=== PATIENT | male | born 1980 | race Caucasian/White ===

== ENCOUNTER 2020-11-25 20:51 | Emergency (ER) | payer OTHER, SELFPAY ==
[2020-11-25 21:02] VITALS: BP 154/99; PULSE 110; RESP 16; TEMP 37.2; O2SAT 94; BMI 48.7
--- NOTE | 2020-11-25 22:26 | ED_ITS ---
HPI - Extremity Problem General Chief complaint: Extremity Problem Stated complaint: LEG BLEED Time Seen by Provider: 11/25/20 22:20 Source: patient Mode of arrival: ambulatory Limitations: no limitations History of Present Illness HPI Narrative: 39-year-old male presents with left lower extremity bleeding. Stated that he was in the shower, scratch to scab and noted significant bleeding with spurting. Was unable to control the bleeding and presented to the emergency department. MD Complaint: extremity pain Onset (ago): hour(s) (Within the hour of arrival) Pain Consistency: constant Location: left and lower extremity Radiation: none Exacerbating factors: weight bearing and walking Associated symptoms: denies other symptoms Related Data Allergies Allergy/AdvReac Type Severity Reaction Status Date / Time No Known Allergies Allergy Verified 11/25/20 21:16 Review of Systems Review of Systems: Constitutional: No Fever, No Chills ENT/Mouth: No Ear Pain, No Hoarseness, No sore throat Eyes: No Eye Pain, No Swelling, No Redness, No Foreign Body Cardiovascular: No Chest Pain, No SOB Respiratory: No Cough, No Dyspnea Gastrointestinal: No Nausea, No Vomiting, No Diarrhea, No abdominal Pain Genitourinary: No Dysuria, No Hematuria Musculoskeletal: No joint pain, No Myalgias, No Joint Swelling Skin: Positive varicose vein bleeding, No Skin lacerations, No rash Neuro: No Weakness, No Numbness, No Paresthesias, No Loss of Consciousness, No Dizziness, No Headache Psych: No Anxiety/Panic, No Depression Heme/Lymph: no easy bruising, no Lymphadenopathy Endocrine: No Polyuria, No Polydipsia Yes all other systems are reviewed and are negative [facility] Past Medical History Attestation statement: The following information was validated with the patient. Source: old records reviewed Medical History (Updated 11/25/20 @ 23:17 by Lisa Ellis NP) Hypertension Social History Social History Advance Directives: No Physical Exam Vital Signs: Vital Signs: Last Vital Signs Temp 98.9 F 11/25/20 21:02 Pulse 110 H 11/25/20 21:02 Resp 16 11/25/20 21:02 BP 154/99 H 11/25/20 21:02 Pulse Ox 94 11/25/20 21:02 Body Mass Index 48.7 Appearance: Alert. Oriented X3. No acute distress. Eyes: Pupils equal, round and reactive to light. ENT: Pharynx normal. Neck: Normal inspection. Neck supple. CVS: Normal heart rate and rhythm. Pulses normal. Respiratory: No respiratory distress. Breath sounds normal. Abdomen: Soft and nontender. Skin: Scab noted to left lateral malleolar with bleeding varicose vein. Normal skin color. Normal skin turgor. Extremities: +3 pitting edema to bilateral lower extremities. Brisk capillary refill. Equal pedal pulses. Neuro: No motor deficit. No sensory deficit. Cranial nerves 2-12 intact. Course Course Course Narrative: 39-year-old male presents with bleeding varicose vein to the left lower extremity. Patient has not seen a physician in over 25 years, does not have a primary care established. I did give him information and phone number to call for PCP. He does have pitting edema, high blood pressure and morbid obesity. At this time we will only address is varicose vein. Prepped and draped in sterile fashion. Cleansed with Betadine. Patient t olerated procedure well. Patient continues with brisk capillary refill in the foot pulses approximately 30 minute status post varicose vein ligation. Three sutures applied. Patient was observed for approximately 45 minutes. Hemostasis successful with sutures and elevation. Dressing applied. Patient verbalized understanding of and agrees to plan of care discharge home. MDM - Extremity (Nontraumatic) MDM Narrative Medical decision making narrative: Bleeding varicose vein Medical Records Attestation: I reviewed the patient's medical records. Procedures Laceration Laceration 1: Site: lower extremity Side (If applicable): left Local Anesthetic: lidocaine 2% and with epi Amount of anesthesia used (mL): 6 Pre-repair: wound explored Skin layer closed with: nylon Size (cm): 4-0 Number of sutures: 3 Technique: simple, interrupted Discharge Plan Discharge Clinical Impression: Bleeding from varicose veins of left lower extremity Patient Disposition: Home, Self-Care Instructions: Care For Your Stitches (ED), Acute Wounds (ED) Additional Instructions: You were evaluated for a left lower bleeding varicose vein. We applied 3 sutures. You must for return in 7-10 days to have the sutures removed. You have significant bilateral lower extremity edema and high blood pressure. You must follow-up with primary care physician. Please call the number on the paper that I gave you to find primary care physician. Thank you for choosing this emergency department for evaluation. Please follow-up with primary care physician as needed. Return to the emergency department for any new, concerning, or worsening symptoms. Stand Alone Forms: Work/School Release
[2020-11-25] MEDS: Lidocaine HCl 2%/Epi 1:100,000 20 ML VIAL INFILTRATI (23:40)
== END 2020-11-25 23:37 | disposition home or self-care (01) ==
PROVIDERS: Emergency Provider Emergency Medicine
DX: I83.892 Varicose veins of left lower extremity with other complications (principal); R60.0 Localized edema; I10 Essential (primary) hypertension
CPT/HCPCS: 12002; 99282; 99284

== ENCOUNTER 2020-12-04 08:49 | Emergency (ER) | payer OTHER, SELFPAY ==
[2020-12-04 08:56] VITALS: BP 162/100; PULSE 100; RESP 18; TEMP 36.7; O2SAT 94; BMI 50.0
--- NOTE | 2020-12-04 09:07 | ED_ITS ---
HPI - Wound/Laceration General Chief Complaint: Wound/Laceration Stated Complaint: SUTURE REMOVAL Time Seen by Provider: 12/04/20 09:02 Source: patient Mode of arrival: ambulatory Limitations: no limitations History of Present Illness HPI narrative: 39 y/o male presenting for suture removal. He was seen her harley 11/25 for a bleeding varicose vein of his left ankle that required 3 sutures to stop the bleeding. He reports some tiny amounts of dried blood on his band aids he has been using to cover it but no overt bleeding. No other issues. Onset (ago): day(s) Extremity Location: left: ankle (lateral ankle) Place: home Context: accidental Associated symptoms: none Treatments prior to arrival: bandage Related Data Allergies Allergy/AdvReac Type Severity Reaction Status Date / Time No Known Allergies Allergy Verified 12/04/20 08:58 Review of Systems Constitutional: Constitutional: Denies chills and Denies fever(s) Eyes: Eyes: Reports no additional eye complaints ENT: Reports system reviewed and no additional complaints, except as documented Cardiovascular: Cardiovascular: Denies chest pain and Denies dyspnea Respiratory: Respiratory: Denies dyspnea Musculoskeletal: Musculoskeletal: Denies arthralgias, Denies joint swelling and Denies numbness Integumentary/Breasts: Skin/Breast: Denies swelling, Denies pruritus, Reports erythema, Denies skin pain, Denies skin swelling and Reports wounds Neurologic: Denies numbness Hematologic/Lymphatic: Hematologic/Lymphatic: Reports easy bleeding and Denies easy bruising PMFSH Past Medical History Medical History (Updated 12/04/20 @ 09:09 by ROD Francis) Hypertension Social History Social History Advance Directives: No Advance Directives Information Provided: No Physical Exam Vital Signs: Vital Signs: Last Vital Signs Temp 98.1 F 12/04/20 08:56 Pulse 100 12/04/20 08:56 Resp 18 12/04/20 08:56 BP 162/100 H 12/04/20 08:56 Pulse Ox 94 12/04/20 08:56 Body Mass Index 50.0 Appearance: Alert. Oriented X3. No acute distress. HEENT: normal inspection CVS: Normal heart rate and rhythm. Pulses normal. Respiratory: No respiratory distress. Skin: Skin warm and dry. Normal skin color. Normal skin turgor. No rashes. Extremities: left lateral ankle with small wound with [address], mild surrounding erythema, no warmth. no bleeding no drainage of pus Neuro: Oriented X 3. No motor deficit. No sensory deficit. Course Course Course Narrative: 39 y/o male presenting for suture removal from bleeding varic ose vein. 3 sutures removed. Wound is not bleeding, healing appropriately. Mild erythema, likely from increased moisture. Advised to leave open to air and start bacitracin. Stable for d/c home. He has an appointment with a new PCP tomorrow - he has not seen a doctor since he was a child. Discharge Plan Discharge Clinical Impression: Visit for suture removal Patient Disposition: Home, Self-Care Instructions: Stitches Removal (ED) Additional Instructions: Keep wound open to air today. Start using bacitracin two times per day tomorrow. Follow up with your doctor Friday as scheduled. Stand Alone Forms: Work/School Release
== END 2020-12-04 09:16 | disposition home or self-care (01) ==
PROVIDERS: Emergency Provider Emergency Medicine
DX: Z48.02 Encounter for removal of sutures (principal)
CPT/HCPCS: 99283

== ENCOUNTER 2020-12-06 12:10 | Outpatient (REF) | payer OTHER, SELFPAY | END 2020-12-06 12:11 | disposition home or self-care (01) | LOC: HO.LNP 12:10 | PROVIDERS: Visit Provider Nurse Practitioner Family | DX: Z20.822 Contact with and (suspected) exposure to COVID-19 (principal); R06.2 Wheezing | CPT/HCPCS: U0003; U0005 ==

== ENCOUNTER 2020-12-12 08:06 | Outpatient (REF) | payer OTHER, SELFPAY ==
--- NOTE | ~2020-12-12 | XR_ITS ---
EXAMINATION: XR CHEST CLINICAL INFORMATION: Wheezing COMPARISON: None TECHNIQUE: 2 views of the chest were obtained. FINDINGS: No significant abnormality is noted involving the heart, lungs, mediastinum, bony thorax or soft tissues. XR/XR chest 2V IMPRESSION: Unremarkable chest examination.
[2020-12-12 12:16] LABS: Appearance Urine CLOUDY; Color Urine YELLOW; Glucose Urine UA NEG (NEG); Leukocyte Esterase Urine NEG (NEG); Nitrite Urine NEG (NEG); Urine Blood NEG (NEG); Urine Ketones NEG (NEG); Urine Protein NEG (NEG-TRACE)
[2020-12-12 12:25] LABS: TSH reflex Free T4 3.08 uIU/mL (0.32-4.0)
[2020-12-12 12:32] LABS: Alanine Aminotransferase 61 U/L (0-40); Albumin Level 4.3 g/dL (3.5-5.0); Alkaline Phosphatase 69 U/L (39-117); Anion Gap 9 (12-20); Aspartate Amino Transferase 32 U/L (5-37); Bilirubin Total 0.7 mg/dL (0.0-1.0); Blood Urea Nitrogen 13 mg/dL (9-16); Carbon Dioxide 29 mmol/L (22-29); Chloride 105 mmol/L (96-108); Cholesterol 202 mg/dL; Estimated Glomerular Filt Rate > 60; Glucose Fasting 99 mg/dL (60-99); HDL Cholesterol 36 mg/dL; LDL Cholesterol Calculated 147 mg/dl; Potassium 4.3 mmol/L (3.3-5.1); Sodium 139 mmol/L (135-145); Total Protein 7.4 g/dL (6.5-8.0); Triglycerides 96 mg/dL
== END 2020-12-12 08:07 | disposition home or self-care (01) ==
LOC: HO.HMGCLDS 08:06
PROVIDERS: PCP Nurse Practitioner Family; Visit Provider Nurse Practitioner Family
DX: Z00.00 Encounter for general adult medical examination without abnormal findings (principal); R06.2 Wheezing
CPT/HCPCS: 36415; 71046; 80053; 80061; 81003; 84443

== ENCOUNTER → 2021-02-01 10:19 | Outpatient (BNVA) | payer OTHER, SELFPAY | PROVIDERS: PCP Nurse Practitioner Family; Visit Provider Surgery Vascular Surgery ==

== ENCOUNTER 2021-02-19 07:44 | Outpatient (REF) | payer OTHER, SELFPAY ==
--- NOTE | ~2021-02-19 | US_ITS ---
EXAMINATION: RIGHT and LEFT LOWER EXTREMITY VENOUS ULTRASOUND (Reflux Exam) CLINICAL INDICATION: leg pain and varicose veins. COMPARISON: None. TECHNIQUE: Color flow triplex imaging and compression Doppler was performed to evaluate both the deep and the superficial systems bilaterally. To evaluate the superficial system, the examination was performed in the upright position. Color-flow Doppler ultrasound and compression ultrasound were utilized. In addition, maneuvers were utilized to demonstrate reflux. FINDINGS: 1. DEEP VENOUS ULTRASOUND OF THE RIGHT LOWER EXTREMITY: Respiratory variation, normal compression and augmented flow are noted in the right common femoral vein as well as the right popliteal vein and there is no evidence of deep venous thrombosis at these locations. There is no evidence of reflux in the deep system in either the common femoral vein or the popliteal vein. There is no evidence of a Winchester's cyst. 2. SUPERFICIAL ULTRASOUND WITH DOPPLER OF RIGHT LOWER EXTREMITY: The right great saphenous vein at the saphenofemoral junction measures 7 mm, at the mid thigh 6 mm. The remainder of the right greater saphenous vein is not visualized. No right greater saphenous vein reflux is seen. There is a lateral accessory greater saphenous vein that measures 5 mm and demonstrates 1 to 1.2 seconds reflux. The right small saphenous vein measures 4-5 mm. There is 1.2 seconds reflux in the small saphenous vein in the distal calf. There are perforators at the knee and calf that measure 2 and 4 mm and do not demonstrate reflux. There are varicosities in the thigh and calf that measure 4 to 5 mm. Demonstrate reflux, maximum 3.2 seconds. 3. DEEP VENOUS ULTRASOUND OF THE LEFT LOWER EXTREMITY: Respiratory variation, normal compression and augmented flow are noted in the left common femoral vein as well as the left popliteal vein and there is no evidence of deep venous thrombosis at these locations. There is no evidence of reflux in the deep system in either the common femoral vein or the popliteal vein. . There is no evidence of a Winchester's cyst. 4. SUPERFICIAL ULTRASOUND WITH DOPPLER OF LEFT LOWER EXTREMITY: Left great saphenous vein at the saphenofemoral junction measures 8 mm, at the mid thigh 5 mm, [id number] 5 mm, [id number] 4 mm, at mid calf 3 mm and at the ankle measures 4 mm. There is diffuse left greater saphenous vein reflux measuring maximum 3.3 seconds above the knee. There is a accessory lateral greater saphenous vein measures 3 to 6 mm and demonstrates reflux, maximum 3 seconds. The left small saphenous vein measures 4-8 mm. There is diffuse left small saphenous vein reflux measuring maximum 3.2 seconds in the mid calf. There is a deckhand in the mid calf that measures 4 mm and does not demonstrate reflux. There are varicosities in the thigh and at the knee that measure 3 to 6 mm and demonstrate reflux, maximum 3.5 seconds. US/US venous duplex LE BI IMPRESSION: Right: No DVT or deep venous reflux. The right greater saphenous vein from the mid thigh to the ankle is not visualized. The right greater saphenous vein in the proximal thighs normal in caliber and no reflux is seen. Reflux in an accessory lateral greater saphenous vein and dilated right small saphenous vein with reflux. Reflux in varicosities in the right thigh and calf. Left: No DVT or deep venous reflux. Diffuse left greater saphenous vein reflux measuring maximum 3.3 seconds. Reflux in an accessory left greater saphenous vein is very maximum 3 seconds. Dilated left small saphenous vein with reflux measuring maximum 3.2 seconds. Reflux in varicosities in the thigh and at the knee measuring maximum 3.5 seconds.
== END 2021-02-19 07:45 | disposition home or self-care (01) ==
LOC: HO.US 07:44
PROVIDERS: PCP Nurse Practitioner Family; Visit Provider Surgery Vascular Surgery
DX: I83.12 Varicose veins of left lower extremity with inflammation (principal)
CPT/HCPCS: 93970

== ENCOUNTER → 2021-02-22 11:24 | Outpatient (BNVA) | payer OTHER, SELFPAY | PROVIDERS: PCP Nurse Practitioner Family; Visit Provider Surgery Vascular Surgery ==

== ENCOUNTER → 2021-04-20 08:32 | Outpatient (BNVA) | payer OTHER, SELFPAY | PROVIDERS: PCP Nurse Practitioner Family; Visit Provider Surgery Vascular Surgery | DX: I83.12 Varicose veins of left lower extremity with inflammation (principal) | CPT/HCPCS: 36482 ==

== ENCOUNTER 2021-04-23 15:18 | Outpatient (REF) | payer OTHER, SELFPAY ==
--- NOTE | ~2021-04-23 | US_ITS ---
EXAMINATION: US VENOUS ULTRASOUND WITH DOPPLER LOWER EXTREMITY, LEFT CLINICAL INFORMATION: Pain. Post VenaSeal procedure 04/20/2021. COMPARISON: Previous exam February 2021 TECHNIQUE: Ultrasound of the deep veins is performed from the hip to the calf with compression sonography and color and pulse Doppler assessment. Spectral analysis with color-flow imaging is performed. FINDINGS: There is normal venous compression and respiratory variation and augmented flow. The visualized common femoral vein, superficial femoral vein, profunda femoral vein, popliteal vein, and the trifurcation region shows no evidence of deep venous thrombosis. There is echogenic material seen in the greater saphenous vein in the mid thigh post VenaSeal procedure. The greater saphenous vein inferior to this point appears closed. There is no significant popliteal fossa cyst. US/US venous duplex LE LT IMPRESSION: No DVT demonstrated in the left lower extremity.
== END 2021-04-23 15:19 | disposition home or self-care (01) ==
LOC: HO.US 15:18
PROVIDERS: Visit Provider Surgery Vascular Surgery
DX: M79.605 Pain in left leg (principal)
CPT/HCPCS: 93971

== ENCOUNTER → 2021-05-01 09:06 | Outpatient (BNVA) | payer OTHER, SELFPAY | PROVIDERS: PCP Nurse Practitioner Family; Visit Provider Surgery Vascular Surgery ==

== ENCOUNTER → 2021-06-01 07:29 | Outpatient (BNVA) | payer OTHER, SELFPAY | PROVIDERS: PCP Nurse Practitioner Family; Visit Provider Surgery Vascular Surgery | DX: I83.12 Varicose veins of left lower extremity with inflammation (principal) | CPT/HCPCS: 36475 ==

== ENCOUNTER 2021-06-04 09:47 | Outpatient (REF) | payer OTHER, SELFPAY ==
--- NOTE | ~2021-06-04 | US_ITS ---
EXAMINATION: US VENOUS ULTRASOUND WITH DOPPLER LOWER EXTREMITY, LEFT CLINICAL INFORMATION: This is a 40-year-old male whose had pain in the left leg status post radiofrequency ablation of the small saphenous vein on June 01, 2021. The patient is 3 days post procedure. COMPARISON: None TECHNIQUE: Ultrasound of the deep veins is performed from the hip to the calf with compression sonography and color and pulse Doppler assessment. Spectral analysis with color-flow imaging is performed. FINDINGS: There is no deep vein thrombosis present. The small saphenous vein is closed beginning 3.5 cm from the sapheno popliteal junction. There is no extension of thrombus into the deep venous system. US/US venous duplex LE LT IMPRESSION: No DVT demonstrated in the left lower extremity.
== END 2021-06-04 09:48 | disposition home or self-care (01) ==
LOC: HO.US 09:47
PROVIDERS: PCP Nurse Practitioner Family; Visit Provider Surgery Vascular Surgery
DX: M79.605 Pain in left leg (principal)
CPT/HCPCS: 93971

== ENCOUNTER → 2021-06-12 08:56 | Outpatient (BNVA) | payer OTHER, SELFPAY | PROVIDERS: PCP Nurse Practitioner Family; Visit Provider Surgery Vascular Surgery ==

== ENCOUNTER → 2021-07-06 08:26 | Outpatient (BNVA) | payer OTHER, SELFPAY | PROVIDERS: PCP Nurse Practitioner Family; Visit Provider Surgery Vascular Surgery | DX: I83.11 Varicose veins of right lower extremity with inflammation (principal) | CPT/HCPCS: 36475 ==

== ENCOUNTER 2021-07-09 14:45 | Outpatient (REF) | payer OTHER, SELFPAY ==
--- NOTE | ~2021-07-09 | US_ITS ---
EXAMINATION: US VENOUS ULTRASOUND WITH DOPPLER LOWER EXTREMITY, RIGHT CLINICAL INFORMATION: Right leg pain post lesser saphenous RFA 07/06/2021 COMPARISON: None TECHNIQUE: Ultrasound of the deep veins is performed from the hip to the calf with compression sonography and color and pulse Doppler assessment. Spectral analysis with color-flow imaging is performed. FINDINGS: There is normal venous compression and respiratory variation and augmented flow. The visualized common femoral vein, superficial femoral vein, profunda femoral vein, popliteal vein, and the trifurcation region shows no evidence of deep venous thrombosis. Visualized greater saphenous vein in the upper thigh is patent. The lesser saphenous vein is closed. There is echogenic material in the lesser saphenous vein 4.7 cm from the saphenofemoral popliteal junction post RFA. There is no popliteal fossa cyst. US/US venous duplex LE RT IMPRESSION: No DVT demonstrated in the right lower extremity.
== END 2021-07-09 14:46 | disposition home or self-care (01) ==
LOC: HO.US 14:45
PROVIDERS: PCP Nurse Practitioner Family; Visit Provider Surgery Vascular Surgery
DX: M79.604 Pain in right leg (principal); Z98.890 Other specified postprocedural states
CPT/HCPCS: 93971

== ENCOUNTER → 2021-07-19 09:00 | Outpatient (BNVA) | payer OTHER, SELFPAY | PROVIDERS: PCP Nurse Practitioner Family; Visit Provider Surgery Vascular Surgery | DX: Z13.89 Encounter for screening for other disorder (principal) ==

== ENCOUNTER 2021-12-11 09:48 | Outpatient (REF) | payer OTHER, SELFPAY ==
--- NOTE | ~2021-12-11 | US_ITS ---
EXAMINATION: US VENOUS ULTRASOUND WITH DOPPLER LOWER EXTREMITY, RIGHT CLINICAL INFORMATION: Right leg swelling. COMPARISON: None TECHNIQUE: Ultrasound of the deep veins is performed from the hip to the calf with compression sonography and color and pulse Doppler assessment. Spectral analysis with color-flow imaging is performed. FINDINGS: There is normal venous compression and respiratory variation and augmented flow. The visualized common femoral vein, superficial femoral vein, profunda femoral vein, popliteal vein, and the trifurcation region show no evidence of deep venous thrombosis. There is no significant popliteal fossa cyst. The right peroneal vein is not visualized due to calf swelling and body habitus. There is a history of RFA with thrombus in SSV. This was noted on the previous study. Incidental finding of right groin lymph node measuring 4.1 x 1.1 x 4.0 cm. If the patient's symptoms persist, followup ultrasound in 5-7 days might be of value to exclude proximal propagation from a non-visualized calf vein. US/US venous duplex LE RT IMPRESSION: No DVT demonstrated in the right lower extremity. Known thrombus in lesser saphenous vein approximately 2.8 cm from the popliteal vein from previous RFA intervention.
== END 2021-12-11 09:49 | disposition home or self-care (01) ==
LOC: HO.HMGCX 09:48
PROVIDERS: PCP Nurse Practitioner Family; Visit Provider Nurse Practitioner Family
DX: R60.0 Localized edema (principal); M79.89 Other specified soft tissue disorders
CPT/HCPCS: 93971

== ENCOUNTER 2022-03-05 12:43 | Outpatient (REF) | payer OTHER, SELFPAY ==
--- NOTE | ~2022-03-05 | US_ITS ---
EXAMINATION: US VENOUS RIGHT LOWER EXTREMITY (REFLUX EXAM) CLINICAL INDICATION: Status post right small saphenous vein RFA. Varicose veins of lower extremity. COMPARISON: 12/11/2021. TECHNIQUE: Color flow triplex imaging and compression Doppler was performed to evaluate the right deep and the superficial systems . To evaluate the superficial system, the examination was performed in the upright position. Color-flow Doppler ultrasound and compression ultrasound were utilized. In addition, maneuvers were utilized to demonstrate reflux. FINDINGS: 1. DEEP VENOUS ULTRASOUND OF THE RIGHT LOWER EXTREMITY: Respiratory variation, normal compression and augmented flow are noted in the right common femoral vein as well as the right popliteal vein and there is no evidence of deep venous thrombosis at these locations. There is reflux seen of 1.7 seconds in the mid femoral vein. The remainder of the deep venous system does not reflux. There is no evidence of a Winchester's cyst. 2. SUPERFICIAL ULTRASOUND WITH DOPPLER OF RIGHT LOWER EXTREMITY: The right great saphenous vein at the saphenofemoral junction measures 9 mm, at the proximal thigh 8 mm. The great saphenous vein is not seen below that point. There is no reflux demonstrated in the right great saphenous vein. DUPLICATED RIGHT GREAT SAPHENOUS VEIN: Lateral accessory saphenous measures 0.8 mm with 0.8 seconds of reflux. The right small saphenous vein measures 0.7 mm proximally without reflux and distally it is not seen secondary to the patient's RFA. ACCESSORY VEIN OF GIACOMINI: None. 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 VARICES PRESENT: Some varicosities are seen measuring up to 0.8 cm in size. US/US venous duplex LE RT IMPRESSION: 1. No evidence of deep vein thrombosis. 2. Deep venous reflux is present in the right mid femoral vein. 3. Findings are suggestive of prior treatment of the right great saphenous vein as it is not seen from the mid thigh downwards. In addition, treatment changes in the small saphenous vein are also present. 4. There is an incompetent lateral accessory saphenous vein along with an incompetent flame brazing machine operator laterally at the level of the knee.
== END 2022-03-05 12:44 | disposition home or self-care (01) ==
LOC: HO.US 12:43
PROVIDERS: Visit Provider Surgery Vascular Surgery
DX: I83.11 Varicose veins of right lower extremity with inflammation (principal)
CPT/HCPCS: 93971